=== PATIENT | female | born 1990 | race American Indian/Alaskan Native ===

== ENCOUNTER 2017-09-03 16:28 | Emergency (ER) | payer MEDICAID, OTHER ==
[2017-09-03 18:19] LABS: Bacteria,Urine 1+ /HPF (Negative); Bilirubin,Urine NEG (Negative); Blood,Urine NEG (Negative); Ketones,Urine NEG (Negative); Leukocyte Esterase,Urine TR (Negative); Mucus,Urine 3+ /HPF; Nitrite,Urine NEG (Negative); Urobilinogen,Urine < 2.0 mg/dL (<2.0)
--- NOTE | 2017-09-03 19:13 | XRay Report ---
FINAL REPORT EXAM: XR CHEST ROUTINE 2V HISTORY: cough/fever TECHNIQUE: Two view chest PA and lateral PRIORS: None. FINDINGS: Cardiac and mediastinal contours are unremarkable. No focal pulmonary infiltrate is identified. No pleural fluid collection seen. Pulmonary vasculature is unremarkable. IMPRESSION: Negative two-view chest
[2017-09-03 19:43] VITALS: BP 154/101
--- NOTE | 2017-09-03 21:07 | Emergency Department Report ---
HPI - General Chief Complaint: Upper Respiratory Infection Time Seen by Provider: 09/03/17 19:48 - HPI HPI: This is a 27-year-old [place] female presents to the emergency department with complaint of a few days of a cough, facial and sinus pressure, sinus drainage and chills with subjective fever. She has not taken anything for her symptoms prior to presentation. She denies any past medical history. No recent travel. She is here with her daughter as well who was recently diagnosed with bronchiolitis. She has a primary care physician but has not seen them regarding her symptoms. ED Past Medical Hx - Past Medical History Previous Medical History?: No Additional medical history: levin's palsy - Surgical History Past Surgical History?: No - Social History Smoking Status: Never Smoker Substance Use Type: None - Medications Home Medications: Home Medications Medication Instructions Recorded Confirmed Last Taken Type predniSONE [Deltasone] 3 tab PO ONCE #22 tablet 10/16/13 Unknown Rx methylPREDNISolone [Medrol Dose 4 mg PO QAM #1 pack 06/26/15 Unknown Rx Asmita] Azithromycin [Zithromax Z-ASMITA] 250 mg PO DAILY #6 tab 09/03/17 Unknown Rx Fluticasone [Flonase] 1 spray NS QDAY #1 bottle 09/03/17 Unknown Rx ED Review of Systems ROS: Stated complaint: HEADACHE,NOSE RUNNING, COUGHING Other details as noted in HPI Comment: All other systems reviewed and negative Constitutional: chills, fever Eyes: denies: eye pain, eye discharge, vision change ENT: congestion. denies: throat pain Respiratory: cough. denies: shortness of breath Cardiovascular: denies: chest pain, palpitations Gastrointestinal: denies: abdominal pain, nausea, diarrhea Genitourinary: denies: urgency, dysuria, discharge Musculoskeletal: denies: back pain, joint swelling, arthralgia Skin: denies: rash, lesions Neurological: headache. denies: numbness Physical Exam - Physical Exam Vital Signs: Vital Signs 09/03/17 09/03/17 17:23 19:41 Temperature 100.1 F H 99.3 F Pulse Rate 121 H 108 H Respiratory 18 16 Rate Blood Pressure 147/99 Blood Pressure 154/101 [Right] O2 Sat by Pulse 97 100 Oximetry Physical Exam: GENERAL: The patient is well-developed well-nourished. HENT: Normocephalic. Atraumatic. Patient has moist mucous membranes. She has a large amount of cerumen in the bilateral external ear canals. I was able to see a small portion around the cerumen and there does not appear to be any signs of otitis media. Oropharynx is clear but there is some cobblestoning appearance to the posterior pharynx. Boggy nasal mucosa. EYES: Extraocular motions are intact. Pupils equal reactive to light bilaterally. NECK: Supple. Trachea is midline. CHEST/LUNGS: Clear to auscultation. There is no respiratory distress noted. HEART/CARDIOVASCULAR: Regular. There is no tachycardia. There is no gallop rub or murmur. ABDOMEN: Abdomen is soft, nontender. Patient has normal bowel sounds. There is no abdominal distention. SKIN: Skin is warm and dry. NEURO: The patient is awake, alert, and oriented. The patient is cooperative. The patient has no focal neurologic deficits. The patient has normal speech. MUSCULOSKELETAL: There is no tenderness or deformity. There is no limitation range of motion. There is no evidence of acute injury. ED Course Vital Signs 09/03/17 09/03/17 17:23 19:41 Temperature 100.1 F H 99.3 F Pulse Rate 121 H 108 H Respiratory 18 16 Rate Blood Pressure 147/99 Blood Pressure 154/101 [Right] O2 Sat by Pulse 97 100 Oximetry ED Medical Decision Making - Radiology Data Radiology results: image reviewed interpreted by me: Chest x-ray does not show any acute process. There are no pleural effusions, obvious pneumonia and there is no pneumothorax. - Medical Decision Making This patient has been dealing with a few days of some head and chest congestion but mostly some sinus pressure. She was checked for influenza here and it was negative. However her daughter recently was diagnosed with bronchiolitis and today was found to have RSV positive. Therefore it is very possible that this patient is also RSV positive. Heart and lungs are normal to auscultation. Patient had some tachycardia when she first arrived but that has since resolved. She was given some Tylenol for her fever. She appears safe for discharge home. She was given a prescription for Flonase, Z-Asmita. She will use Tylenol and ibuprofen as needed for fever or discomfort. She will return to the ER with any worsening of her symptoms or any acute distress. - Differential Diagnosis RSV, influenza, sinusitis, pneumonia Critical Care Time: No Critical care attestation.: If time is entered above; I have spent that time in minutes in the direct care of this critically ill patient, excluding procedure time. ED Disposition Clinical Impression: Upper respiratory infection Qualifiers: URI type: unspecified URI Qualified Code(s): J06.9 - Acute upper respiratory infection, unspecified Sinusitis Qualifiers: Sinusitis location: unspecified location Chronicity: acute Recurrence: not specified as recurrent Qualified Code(s): J01.90 - Acute sinusitis, unspecified Hypertension Qualifiers: Hypertension type: essential hypertension Qualified Code(s): I10 - Essential ( primary) hypertension Disposition: TO HOME OR SELFCARE Is pt being admited?: No Condition: Stable Instructions: Sinusitis (ED), Upper Respiratory Infection (ED), Hypertension ( ED) Additional Instructions: Please follow up with a primary care physician in the next 2 days. Return to the emergency Department with any worsening of your symptoms or any acute distress. He can take Tylenol every 4 hours and ibuprofen every 6 hours, using weight-based dosing, as needed for fever or discomfort. Prescriptions: Azithromycin [Zithromax Z-ASMITA] 250 mg PO DAILY #6 tab Fluticasone [Flonase] 1 spray NS QDAY #1 bottle Referrals: PRIMARY MD JOÃO [Primary Care Provider] - 3-5 Days ELOISA CHAU MD [Staff Physician] - 3-5 Days [facility] [Outside] - 3-5 Days Time of Disposition: 21:07
== END 2017-09-03 21:25 | disposition home or self-care (01) ==
LOC: ED 16:28
DX: J06.9 Acute upper respiratory infection, unspecified (principal); J32.9 Chronic sinusitis, unspecified; I10 Essential (primary) hypertension
CPT/HCPCS: 71020; 81001; 81025; 87400; 99284

== ENCOUNTER 2018-12-14 10:49 | Emergency (ER) | payer OTHER ==
[2018-12-14 10:55] VITALS: BP 138/94
--- NOTE | 2018-12-14 12:19 | Event Note ---
Date: 12/14/18 Patient is apparently sent to the emergency room by her [employer] for elevated blood pressure. Patient currently has a blood pressure 138/94. This provider went into the patient's room to perform a screening exam, and initiate appropriate laboratory studies. The patient had no complaints to this provider. The patient indicated that she did not have a long time to wait, and indicated that she was going to leave before the completion of her medical evaluation. I advised the patient that an incomplete evaluation in the context of hypertension and could result in seizures, , disability, paralysis, permanent loss of quality of life. Patient verbalized understanding in her own words, she is alert and oriented 3, clinically sober, demonstrates decision-making capacity, and is free from distracting injury. The patient was counseled to return to the emergency room as soon as possible if and when she changes her mind. Vital Signs 12/14/18 10:55 Temperature 98.6 F Pulse Rate 95 H Respiratory 20 Rate Blood Pressure 138/94 [Left] O2 Sat by Pulse 96 Oximetry
== END 2018-12-14 12:15 | disposition left against medical advice (07) ==
LOC: ED 10:49
DX: O26.893 Other specified pregnancy related conditions, third trimester (principal); Z53.21 Procedure and treatment not carried out due to patient leaving prior to being seen by health care provider

== ENCOUNTER 2020-05-31 12:01 | Emergency (ER) | payer OTHER | END 2020-05-31 13:22 | disposition left against medical advice (07) | LOC: ED 12:01 | DX: O99.611 Diseases of the digestive system complicating pregnancy, first trimester (principal); K62.5 Hemorrhage of anus and rectum; Z53.21 Procedure and treatment not carried out due to patient leaving prior to being seen by health care provider; Z3A.12 12 weeks gestation of pregnancy ==

== ENCOUNTER 2021-05-10 19:38 | Emergency (ER) | payer OTHER | END 2021-05-11 | LOC: ED 19:38 | DX: R11.2 Nausea with vomiting, unspecified (principal); G43.909 Migraine, unspecified, not intractable, without status migrainosus; Z53.21 Procedure and treatment not carried out due to patient leaving prior to being seen by health care provider ==